=== PATIENT | female | born 1975 | race Two or more races ===

== ENCOUNTER 2017-05-11 18:16 | Emergency (ER) | payer BC ==
[~2017-05-11] VITALS: Ht 165.1 cm; Wt 91.2 kg
[2017-05-11 18:41] VITALS: BP 122/74
--- NOTE | 2017-05-11 18:56 | NUR ---
[facility] SELF FOR BACK AND LLQ ABD PAIN, 03/27 X 1 DAY. PATIENT IS AAO4. APPEARS IN NO APPARENT DISTRESS. RESPIRATION EVEN AND UNLABORED. SKIN IS WARM TO TOUCH AND NON DIAPHORETIC. AFEBRILE. VSS
--- NOTE | 2017-05-11 19:15 | NUR ---
Patient does not wish to proceed with medical care recommended by AMY Patel. Patient given information related to possible complications, up to and including , which could occur as a result of leaving the hospital at this time. Patient verbalizes understanding of risks involved due to leaving against medical advice. Patient has signed AMA form.
== END 2017-05-11 19:17 | disposition left against medical advice (07) ==
LOC: ER 18:18
DX: R10.32 Left lower quadrant pain (principal); D64.9 Anemia, unspecified
CPT/HCPCS: 99281; A4606; Z7502; Z7610